=== PATIENT | female | born 1955 | race Caucasian/White ===

== ENCOUNTER → 2021-05-25 07:01 | Outpatient (CLI) | payer OTHER, SELFPAY ==
--- NOTE | 2021-05-25 07:08 | BI_ITS ---
MAMMOGRAPHY - BILATERAL SCREENING REASON FOR EXAM: Female, 65 years old. Routine annual screening examination. PERTINENT HISTORY: Mother with breast cancer. Bilateral breast implants. TECHNIQUE: Digital bilateral breast eddie (3D mammographic acquisition) in the CC and MLO projections. 2-D mediolateral oblique (MLO) and craniocaudad (CC) views of both breasts were obtained. CAD: Full Field Digital Mammography with Computer Added Detection was performed. COMPARISON: None. Baseline examination. FINDINGS: Breast Composition: The breasts are heterogeneously dense, which may obscure small masses. There are no dominant masses or suspicious calcifications. Bilateral pes planus is seen. They are unremarkable. No other significant abnormalities are identified. BI/SCRN MAMM (CAD)W/EDDIE BILAT IMPRESSION: Negative screening mammogram. Yearly followup mammogram recommended. (A) ASSESSMENT CATEGORY: BIRADS Category 2: Benign. A letter regarding these results will be sent to the patient by the facility within 30 days. Approximately 10% of breast cancers are not detected by mammography. A normal mammogram should not delay biopsy of a clinically suspicious abnormality. [id number] Electronically Signed: Jonny Seals MD at 9:06 EDT , Service support ,
== END ==
PROVIDERS: PCP Family Medicine; Referring Provider Family Medicine; Visit Provider Family Medicine
DX: Z12.31 Encounter for screening mammogram for malignant neoplasm of breast (principal); Z80.3 Family history of malignant neoplasm of breast
CPT/HCPCS: 77063; 77067

== ENCOUNTER → 2022-08-23 | Outpatient (CLI) | payer MEDICARE, OTHER, SELFPAY ==
[2022-08-23 13:32] VITALS: BP 140/64; PULSE 66; RESP 12; O2SAT 99; BMI 24.7
[2022-08-23] MEDS: 0.9% NaCl IVPB Med Flush (250 mL) 15 ML IV (13:43)
[2022-08-23] MEDS: 0.9% NaCl Peripheral Flush Adult/Peds IV (13:43)
[2022-08-23] MEDS: Zoledronic Acid 5 MG 100 ML 300 MG IV (13:44)
[2022-08-23 14:25] VITALS: BP 117/63; PULSE 75
== END | disposition home or self-care (01) ==
LOC: MEDOUTP 13:18
PROVIDERS: PCP Family Medicine; Referring Provider Internal Medicine Endocrinology, Diabetes & Metabolism; Visit Provider Internal Medicine Endocrinology, Diabetes & Metabolism
DX: M81.0 Age-related osteoporosis without current pathological fracture (principal)
CPT/HCPCS: 96365; J7050; A4216; J3489

== ENCOUNTER → 2022-09-26 | Outpatient (CLI) | payer MEDICARE, OTHER, SELFPAY ==
--- NOTE | 2022-09-26 11:50 | BI_ITS ---
MAMMOGRAPHY - BILATERAL SCREENING REASON FOR EXAM: Female, 67 years old. Routine annual screening examination. PERTINENT HISTORY: Mother with breast cancer. Bilateral breast implants. Six-month history of a right breast implant rupture. TECHNIQUE: Digital bilateral breast eddie (3D mammographic acquisition) in the CC and MLO projections. 2-D mediolateral oblique (MLO) and craniocaudad (CC) views of both breasts were obtained. CAD: Full Field Digital Mammography with Computer Added Detection was performed. COMPARISON: Comparison is made with prior study 05/25/2021. FINDINGS: Breast Composition: The breasts are heterogeneously dense, which may obscure small masses. There are no dominant masses or suspicious calcifications. Bilateral breast implants are once again seen. There is diffuse peripheral calcification of the breast implants. Since prior study, there is an outpouching superior aspect of the right breast implant in keeping with the history of rupture. No other significant abnormalities are identified. BI/SCRN MAMM (CAD)W/EDDIE BILAT IMPRESSION: Findings suggestive of rupture of the right breast implant. Calcification along the margins of both breast implants. Yearly follow-up mammogram recommended. (A) ASSESSMENT CATEGORY: BIRADS Category 2: Benign. A letter regarding these results will be sent to the patient by the facility within 30 days. Approximately 10% of breast cancers are not detected by mammography. A normal mammogram should not delay biopsy of a clinically suspicious abnormality. [id number] Electronically Signed: Jonny Seals MD at 13:11 EST ,
== END | disposition home or self-care (01) ==
LOC: OPBI 11:48
PROVIDERS: PCP Family Medicine; Visit Provider Family Medicine
DX: Z12.31 Encounter for screening mammogram for malignant neoplasm of breast (principal); Z98.82 Breast implant status
CPT/HCPCS: 77063; 77067

== ENCOUNTER → 2022-10-09 | Outpatient (CLI) | payer MEDICARE, OTHER, SELFPAY | END | disposition home or self-care (01) | PROVIDERS: PCP Family Medicine; Visit Provider Nurse Practitioner Women's Health | DX: R35.0 Frequency of micturition (principal) | CPT/HCPCS: 87086; 87088 ==

== ENCOUNTER → 2022-11-02 | Outpatient (CLI) | payer MEDICARE, OTHER, SELFPAY ==
--- NOTE | 2022-11-02 11:01 | MRI_ITS ---
STUDY: BILATERAL BREAST MR WITHOUT AND WITH CONTRAST REASON FOR EXAM: Female, 67 years old. Mother with breast cancer. Right implant rupture for 6 months. TECHNIQUE: Multi-sequence multi-echo imaging of both breasts was performed with a dedicated breast coil. T1-weighted and T2-weighted images were performed without contrast. COMPARISON: Bilateral mammograms dated September 26, 2022 and May 25, 2021. FINDINGS: Bilateral heavily calcified breast implants. Bilateral intracapsular ruptures with a protrusion of the superior right implant as identified on the mammogram. No extracapsular rupture identified. MRI/MRI BREAST W/O CONT BILAT IMPRESSION: Bilateral intracapsular ruptures with a right superior implant protrusion. No extracapsular rupture present. CATEGORY: BIRADS Category 2: Benign. A letter regarding these results will be sent to the patient by the facility within 30 days. Electronically Signed: Blair Zhu, at 15:41 EST ,
== END | disposition home or self-care (01) ==
LOC: MRI 10:52
PROVIDERS: PCP Family Medicine; Visit Provider Nurse Practitioner Women's Health
DX: T85.43XA Leakage of breast prosthesis and implant, initial encounter (principal); Z98.82 Breast implant status
CPT/HCPCS: 77047

== ENCOUNTER 2023-08-31 12:43 | Outpatient (CLI) | payer MEDICARE, OTHER, SELFPAY ==
[2023-08-31 12:50] VITALS: BP 142/63; PULSE 56; RESP 16; TEMP 36.7; O2SAT 99; BMI 24.7
[2023-08-31] MEDS: Zoledronic Acid 5 MG 100 ML 300 MG IV (12:59)
[2023-08-31] MEDS: 0.9% NaCl Peripheral Flush Adult/Peds IV (12:59)
[2023-08-31 13:22] VITALS: BP 132/73; PULSE 65
== END 2023-08-31 12:44 | disposition home or self-care (01) ==
LOC: MEDOUTP 12:44
PROVIDERS: PCP Family Medicine; Referring Provider Nurse Practitioner Family; Visit Provider Nurse Practitioner Family
DX: M81.0 Age-related osteoporosis without current pathological fracture (principal)
CPT/HCPCS: 96365; A4216; J3489

== ENCOUNTER → 2023-10-22 | Outpatient (CLI) | payer MEDICARE, OTHER, SELFPAY ==
--- NOTE | 2023-10-22 13:06 | BI_ITS ---
MAMMOGRAPHY - BILATERAL SCREENING REASON FOR EXAM: Female, 68 years old. Routine annual screening examination. PERTINENT HISTORY: Mother with breast cancer. History of bilateral breast implants and rupture. TECHNIQUE: Digital bilateral breast eddie (3D mammographic acquisition) in the CC and MLO projections. 2-D mediolateral oblique (MLO) and craniocaudad (CC) views of both breasts were obtained. CAD: Full Field Digital Mammography with Computer Added Detection was performed. COMPARISON: Comparison is made with prior study dated September 26, 2022 and June 04, 2021. FINDINGS: Breast Composition: The breasts are heterogeneously dense, which may obscure small masses. There are no dominant masses or suspicious calcifications. Stable appearance of the bilateral breast implants. Diffuse peripheral calcification of the implants with stable outpouching along the superior axillary region of the right breast implant. No other significant abnormalities are identified. There has been no significant change since the prior study. BI/SCRN MAMM (CAD)W/EDDIE BILAT IMPRESSION: Stable bilateral screening mammogram. Yearly follow-up mammogram recommended. (A) ASSESSMENT CATEGORY: BIRADS Category 2: Benign. A letter regarding these results will be sent to the patient by the facility within 30 days. Approximately 10% of breast cancers are not detected by mammography. A normal mammogram should not delay biopsy of a clinically suspicious abnormality. [id number] Electronically Signed: Jonny Seals MD at 14:19 EST ,
== END | disposition home or self-care (01) ==
PROVIDERS: PCP Family Medicine
DX: Z12.31 Encounter for screening mammogram for malignant neoplasm of breast (principal); Z80.0 Family history of malignant neoplasm of digestive organs
CPT/HCPCS: 77063; 77067

== ENCOUNTER 2024-09-01 12:53 | Outpatient (CLI) | payer MEDICARE, OTHER, SELFPAY ==
[2024-09-01 13:01] VITALS: BP 130/55; PULSE 69; RESP 14; TEMP 35.8; O2SAT 100; BMI 24.8
[2024-09-01] MEDS: Zoledronic Acid 5 MG 100 ML 300 MG IV (13:27)
== END 2024-09-01 23:59 | disposition home or self-care (01) ==
LOC: MEDOUTP 12:53
PROVIDERS: PCP Family Medicine; Referring Provider Internal Medicine Endocrinology, Diabetes & Metabolism; Visit Provider Internal Medicine Endocrinology, Diabetes & Metabolism
DX: M81.0 Age-related osteoporosis without current pathological fracture (principal)
CPT/HCPCS: 96365; A4216; J3489